=== PATIENT | female | born 1945 | race Two or more races ===

== ENCOUNTER → 2019-02-04 | Outpatient (CLI) | payer MEDICARE, OTHER ==
[~2019-02-04] MED LIST: DULO60CA7 PO; GLIP2.5T16 PO; HYDR-3237 PO; LISI1TAB3 PO; METF500T17 PO; PREG75CA PO
[2019-02-04 12:20] LABS: ALBUMIN 3.7 g/dL (3.4-5.0); ANION GAP 9 mmol/L (5-15); CALCIUM 9.5 mg/dL (8.5-10.1); CHLORIDE 103 mmol/L (98-107)
[2019-02-04 12:25] LABS: ALANINE AMINOTRANSFERASE 45 U/L (12-78); ALKALINE PHOSPHATASE 92 U/L (45-117); BILIRUBIN,TOTAL 0.8 mg/dL (0.2-1.0); CREATININE 0.79 mg/dL (0.55-1.02); TOTAL PROTEIN 7.8 g/dL (6.4-8.2)
== END | disposition home or self-care (01) ==
LOC: STAR 11:01
PROVIDERS: ATTEND Orthopaedic Surgery
DX: Z01.818 Encounter for other preprocedural examination (principal); M75.121 Complete rotator cuff tear or rupture of right shoulder, not specified as traumatic
CPT/HCPCS: 36415; 80053; 93005

== ENCOUNTER 2019-02-12 06:43 | Day surgery (SDC) | payer MEDICARE, OTHER ==
[~2019-02-12] VITALS: Ht 149.9 cm; Wt 63.4 kg
[~2019-02-12 06:43] MED LIST changes: +BUPIVACAINE/PF-EPI 0.5% 1:200K ONE; +LIDOCAINE 1%-EPI 1:100K, 20ML ONE
[2019-02-12] MEDS ORDERED: LACTATED RINGERS 1,000 ML IV SCH (07:03)
[2019-02-12 07:07] VITALS: BP 177/97
[2019-02-12] MEDS ORDERED: MIDAZOLAM 1 MG/ML, 2ML ONE (07:39)
[2019-02-12] MEDS ORDERED: FENTANYL PF 100 MCG/2ML ONE ×2 (07:39→10:57)
[2019-02-12] MEDS ORDERED: LABETALOL 5MG/ML, 20ML IV PRN (10:30)
[2019-02-12] MEDS ORDERED: HYDROmorphone 2 MG/ML, 1ML IVPush PRN (10:30)
[2019-02-12] MEDS ORDERED: OXYcodone 5 MG/5 ML ORAL.SOL UDC PO PRN (10:30)
[2019-02-12] MEDS ORDERED: ACETAMINOPHEN 325 MG TABLET PO PRN (10:30)
[2019-02-12] MEDS ORDERED: ALBUTEROL SULFATE 2.5 MG/3 ML NPPB PRN (10:30)
[2019-02-12] MEDS ORDERED: DIAZEPAM 5 MG/ML, 2ML IVPush PRN (10:30)
[2019-02-12] MEDS ORDERED: PROMETHAZINE 25 MG/ML, 1ML IV PRN (10:30)
[2019-02-12] MEDS ORDERED: MEPERIDINE/PF 25MG/0.5ML IVPush PRN (10:30)
[2019-02-12] MEDS ORDERED: hydrALAzine 20 MG/ML, 1ML IV PRN (10:30)
[2019-02-12] MEDS ORDERED: ONDANSETRON 2MG/ML, 2ML ONE (10:37)
[2019-02-12] MEDS ORDERED: PROPOFOL 10 MG/ML, 20ML ONE (10:37)
[2019-02-12] MEDS ORDERED: CEFAZOLIN 1,000 MG ONE (10:37)
[2019-02-12] MEDS ORDERED: GLYCOPYRROLATE 0.2MG/1ML, 5ML ONE (10:37)
[2019-02-12] MEDS ORDERED: NEOSTIGMINE 1 MG/ML, 10ML ONE (10:37)
[2019-02-12] MEDS ORDERED: DEXAMETHASONE 4 MG/ML, 1ML ONE (10:37)
[2019-02-12] MEDS ORDERED: SUCCINYLCHOLINE 20 MG/ML, 10ML ONE (10:37)
[2019-02-12] MEDS ORDERED: ROCURONIUM 10MG/ML,5ML ONE (10:37)
[2019-02-12] MEDS ORDERED: OXYcodone 5 MG/5 ML ORAL.SOL UDC ONE (10:57)
[2019-02-12] MEDS ORDERED: hydrALAzine 20 MG/ML, 1ML ONE (10:57)
[2019-02-12] MEDS: FENTANYL PF 100 MCG/2ML IV PRN ×2 (11:01→11:11)
== END 2019-02-12 16:35 | disposition home or self-care (01) ==
LOC: OUT 06:43
PROVIDERS: ATTEND Orthopaedic Surgery
DX: S43.431A Superior glenoid labrum lesion of right shoulder, initial encounter (principal); M75.41 Impingement syndrome of right shoulder; M94.211 Chondromalacia, right shoulder; M65.811 Other synovitis and tenosynovitis, right shoulder; M75.51 Bursitis of right shoulder; I10 Essential (primary) hypertension; E11.9 Type 2 diabetes mellitus without complications; E78.5 Hyperlipidemia, unspecified; M79.7 Fibromyalgia; Z79.84 Long term (current) use of oral hypoglycemic drugs; Z79.891 Long term (current) use of opiate analgesic; Z79.899 Other long term (current) drug therapy; Z88.2 Allergy status to sulfonamides; Z88.8 Allergy status to other drugs, medicaments and biological substances; Z90.710 Acquired absence of both cervix and uterus; Z90.49 Acquired absence of other specified parts of digestive tract; Z82.3 Family history of stroke; X58.XXXA Exposure to other specified factors, initial encounter; Y93.89 Activity, other specified; Y92.89 Other specified places as the place of occurrence of the external cause; Y99.8 Other external cause status
CPT/HCPCS: 29823; 29826; 64415; J0330; J0360; J0690; J1100; J2250; J2405; J2704; J3010; J3490; J2710